=== PATIENT | female | born 1995 | race Caucasian/White ===

== ENCOUNTER 2016-05-16 10:34 | Emergency (ER) | payer MEDICAID ==
[~2016-05-16] VITALS: Ht 157.5 cm; Wt 49.5 kg
[~2016-05-16 10:34] MED LIST: PRENAT PO
[2016-05-16 10:43] VITALS: Ht 157.5 cm; Wt 49.5 kg
[2016-05-16] MEDS ORDERED: CEPH-443 PO (11:23)
[2016-05-16] MEDS ORDERED: NYST15CR16 TOP (11:23)
--- NOTE | 2016-05-16 11:30 | ERD ---
ER Documentation Chief Complaint Date/Time DATE: 05/16/16 TIME: 11:27 Chief Complaint Rash on B hands X 1 month HPI 20 year old female comes in with a bilateral hand rash x 1 month. She describes it as pruritic, started on the right hand and is now on the left. She has it on the dorsal aspects, and in some of the webspaces. She states that it is localized to the hands only, and no sick contacts or other family members with the same rash. She cleans with Clorox, but has not noticed any cuca hon the palmar side. ROS All systems reviewed and are negative except as per history of present illness. Medications Home Meds Active Scripts Cephalexin* (Keflex*) 500 Mg Capsule, 500 MG PO QID for 7 Days, CAP Prov:VERN ALAN PA-C 05/16/16 Nystatin-Triamcinolone* (Nystatin-Triamcinolone* Cream) 15 Gm Cream.gm., 1 APPLIC TOP BID for 7 Days, TUB Prov:VERN ALAN PA-C 05/16/16 Reported Medications Multivit/Min/Fol Ac/Iron/Pren* ( S*) 1 Tab Tab, 1 TAB PO DAILY, TAB 11/10/15 Allergies Allergies: Coded Allergies: latex (Verified Allergy, Mild, RASH, 05/16/16) PMhx/Soc Medical and Surgical Hx: pt denies Medical Hx, pt denies Surgical Hx History of Surgery: No Anesthesia Reaction: No Hx Neurological Disorder: No Hx Respiratory Disorders: No Hx Cardiac Disorders: No Hx Psychiatric Problems: No Hx Miscellaneous Medical Probl: No Hx Alcohol Use: No Hx Substance Use: No Hx Tobacco Use: No Smoking Status: Never smoker Physical Exam Vitals Vital Signs Date Time Temp Pulse Resp B/P Pulse Ox O2 Delivery O2 Flow Rate FiO2 05/16/16 10:43 99.2 56 18 115/64 99 Physical Exam General: Well-developed, well-nourished. The patient appears in no acute distress. HEENT: Head is normocephalic, atraumatic. No scleral icterus. Neck: Supple. Nontender. Lungs: Clear to auscultation. Normal air movement. Heart: Regular rate and rhythm. S1 and S2 are normal. No murmurs, gallops, or rubs. Abdomen: Nondistended. Extremities: No clubbing or cyanosis. Moving extremities x 4. No weakness. Neurologic: Alert and oriented 3. No focal deficits. Normal speech and gait. Skin: Erythematous rash that is well delineated in the webspaces as well as the dorsal aspect of both hands. Palms unremarkable. Procedures/MDM 20-year-old female comes in with a rash to the hands, they are bilateral and started on one hand and went on to the left hand. Clinically this is likely a fungal infection given the delineation of the erythema, she has some soft tissue opening from scratching and will be treated with Keflex to prevent any further bacterial infection. She was given contact precautions regarding family members including her child at home. Departure Diagnosis: Primary Impression: Dermatitis Condition: Good Patient Instructions: Dermatitis, Non-Specific Additional Instructions: DERMATOLOGO Specialist:Usted tiene estee condicin mdica que requiere que aarti a un especialista dentro de los prximo SEMANA.POR FAVOR,CON PARTIDA SEGUIMIENTO DE PRIMARIA PHSICIAN refferal. SI USTED NO TIENE UN MDICO GENERAL Y / O USTED NO PUEDE PAGAR ranjana a un mdico,los siguientes acosta RECURSOS sido suministrado a usted. ES PARTIDA RESPONSABILIDAD PARA SER VISTOS POR EL ESPECIALISTA: VERN ALAN PA-C May 16, 2016 11:30
== END 2016-05-16 11:33 | disposition home or self-care (01) ==
LOC: FTE 10:34
DX: L30.9 Dermatitis, unspecified (principal); Z91.040 Latex allergy status
CPT/HCPCS: 99284